=== PATIENT | female | born 1965 | race African-American/Black ===

== ENCOUNTER 2017-02-08 17:12 | Emergency (ER) | payer MEDICAID, OTHER ==
[~2017-02-08] VITALS: Ht 165.1 cm; Wt 109.0 kg
[2017-02-08] MEDS ORDERED: IBUPROFEN 800MG TABLET PO ONE (18:30)
[2017-02-08 18:32] VITALS: BP 141/84
== END 2017-02-08 19:13 | disposition home or self-care (01) ==
LOC: ER 19:02
DX: J02.9 Acute pharyngitis, unspecified (principal); E11.9 Type 2 diabetes mellitus without complications; R59.0 Localized enlarged lymph nodes; Z96.659 Presence of unspecified artificial knee joint
CPT/HCPCS: 99283

== ENCOUNTER 2017-10-11 13:54 | Emergency (ER) | payer OTHER ==
[~2017-10-11] VITALS: Ht 175.3 cm; Wt 124.0 kg
[2017-10-11] MEDS ORDERED: IBUPROFEN 800MG TABLET PO ONE (18:45)
[2017-10-11 18:56] VITALS: BP 134/76
== END 2017-10-11 19:10 | disposition home or self-care (01) ==
LOC: ER 16:22
DX: J01.90 Acute sinusitis, unspecified (principal); B96.89 Other specified bacterial agents as the cause of diseases classified elsewhere; J02.9 Acute pharyngitis, unspecified; F17.210 Nicotine dependence, cigarettes, uncomplicated
CPT/HCPCS: 99283